=== PATIENT | male | born 1990 | race Asian ===

== ENCOUNTER 2016-02-21 19:10 | Emergency (ER) | payer OTHER ==
[~2016-02-21] VITALS: Ht 177.8 cm; Wt 74.8 kg
[2016-02-21 20:25] LABS: ABSOLUTE BASOPHIL COUNT 0 /CUMM (0.0-0.2); ABSOLUTE EOSINOPHIL COUNT 0.6 /CUMM (0.0-0.7); ABSOLUTE GRANULOCYTE CT 5.1 /CUMM (1.4-6.5); ABSOLUTE LYMPH COUNT 2.9 /CUMM (1.2-3.4); ABSOLUTE MONOCYTE COUNT 0.8 /CUMM (0.10-0.60); BASOPHIL % 0.3 % (0.0-2.0); EOSINOPHIL % 5.9 % (0-5); GRANULOCYTE % 54.4 % (42.2-75.2); HEMATOCRIT 48.5 % (42-52); MEAN CORPUSCULAR HGB CONC 34.6 G/DL (33.0-37.0); MEAN CORPUSCULAR VOLUME 83.9 FL (80.0-94.0); PLATELET COUNT 297 /CUMM (130-400); RBC DISTRIBUTION WIDTH 12.6 % (11.5-14.5); RED BLOOD CELL CT 5.78 /CUMM (4.70-6.10); WHITE BLOOD CELL COUNT 9.4 /CUMM (4.8-10.8)
--- NOTE | 2016-02-21 20:26 | ED CARDIAC/CP/PALPITATIONS ---
History of Present Illness General Chief Complaint: General Adult Stated Complaint: HIGH BP PER PT Source: patient, family, manager of financial Exam Limitations: language barrier Vital Signs & Intake/Output Vital Signs & Intake/Output Vital Signs Date Time Temp Pulse Resp B/P Pulse O2 O2 Flow FiO2 Ox Delivery Rate 02/20 2038 109 18 160/96 02/20 1913 172/98 02/21 1912 98.2 109 18 166/121 98 Room Air Room Air Allergies Coded Allergies: No Known Allergies (02/21/16) Reconcile Medications Metoprolol Succ XL (Toprol XL) 25 MG TAB 1 TAB PO DAILY htn Triage Note: TRIAGE: 26 Y/O MALE PRESENTS W PMHX OF HYPERTENSION - REPORTS HIGH BLOOD PRESSURE AT HOME. 172/98 MANUALLY IN TRIAGE. DENIES PAIUN, DENIES HEADACHE. DENIES TAKING BP MEDS AT HOME. Triage Nurses Notes Reviewed? yes HPI: 26-year-old non-Mexican speaking male, is the manager of financial, here with complaints of hypertension. They were attaining a medical evaluation together when he was noted to have elevated blood pressure and he was advised to come to the ER for reevaluation. He denies any complaints. He feels well, no chest pain, no palpitations, no nausea no vomiting no confusion no headaches no blurred vision no visual changes. No history of hypertension LO he has not seen a doctor in many years. There is a positive family history of his father dying of a heart attack at the age of 25. There is been no treatment thus far no modifying factors Past History Travel History Traveled to [place] past 21 day No Medical History Any Pertinent Medical History? see below for history Cardiovascular: hypertension Surgical History Surgical History: none Psychosocial History What is your primary language Polish Tobacco Use: Never used ETOH Use: occasional use Illicit Drug Use: denies illicit drug use Family History Hx Contributory? No Review of Systems Review of Systems Constitutional: Reports: see HPI. EENTM: Reports: no symptoms. Respiratory: Reports: no symptoms. Cardiovascular: Reports: no symptoms. GI: Reports: no symptoms. Genitourinary: Reports: no symptoms. Musculoskeletal: Reports: no symptoms. Skin: Reports: no symptoms. Neurological/Psychological: Reports: no symptoms. Hematologic/Endocrine: Reports: no symptoms. Immunologic/Allergic: Reports: no symptoms. All Other Systems: Reviewed and Negative Physical Exam Physical Exam General Appearance: well developed/nourished Cardiovascular: regular rate/rhythm Comments: Well-developed well-nourished person in no acute distress HEENT: Normal EENT exam, extraocular motion intact, no nystagmus. Pupils equally round and reactive to light. Nose is atraumatic. External auditory canal and Tympanic membranes clear. Pharynx normal. No swelling or edema. Neck: Supple, no lymphadenopathy, normal range of motion without pain or tenderness Back: Nontender, no CVA tenderness. Full range of motion Cardiovascular: Regular rate and rhythms no murmurs, normal JVP Respiratory: Chest nontender. No respiratory distress. Breath sounds clear to auscultation bilaterally Abdomen: Soft, nontender nondistended, no appreciable organomegaly. Normal bowel sounds. No ascites Extremity: No edema, no calf tenderness to palpation, normal and equal pulses. Neuro: Alert oriented x3, motor sensory normal, cranial nerves II through XII grossly intact. Skin: No appreciable rash on exposed skin, skin is warm and dry. Psych: Mood and affect is normal, memory and judgment is normal. Core Measures ACS in differential dx? Yes Severe Sepsis Present: No Septic Shock Present: No Progress Differential Diagnosis: AMI, aortic dissection, atrial fibrillation, cholecystitis, CHF/pulm edema, costochondritis, hyperkalemia, hypovolemia, hyperthyroid, hyperventilation, intracranial hemorrhage, musculoskeletal pain, myocarditis, pancreatitis, pericarditis, pneumonia, pneumothorax, PSVT, pulmonary embolism, PUD/GERD, PVCs/PACs, respiratory failure, rib fracture, sepsis, unstable angina, V-fib/V-Tach, WPW syndrome Plan of Care: Orders Procedure Date/time Status Telemetry/Director [facility] 02/21 2004 Active URINALYSIS 02/21 2004 Complete COMPREHENSIVE METABOLIC PANEL 02/21 2004 Complete CBC WITHOUT DIFFERENTIAL 02/21 2004 Complete EKG 02/21 2004 Active Laboratory Tests 02/21/16 2027: Urine Color YEL, Urine Clarity CLEAR, Urine pH 7.0, Ur Specific [place] 1.010, Urine Protein NEG, Urine Ketones NEG, Urine Nitrite NEG, Urine Bilirubin NEG, Urine Urobilinogen 0.2, Ur Leukocyte Esterase NEG, Ur Microscopic EXAM NOT REQUIRED, Urine Hemoglobin NEG, Urine Glucose NEG 02/21/16 2016: Anion Gap 13, Estimated GFR > 60, BUN/Creatinine Ratio 15.0, Glucose 110 H, Calcium 10.0, Total Bilirubin 1.4 H, AST 29, ALT 28, Alkaline Phosphatase 82, Total Protein 8.5 H, Albumin 4.9, Globulin 3.6, Albumin/Globulin Ratio 1.4, CBC w Diff NO MAN DIFF REQ, RBC 5.78, MCV 83.9, MCH 29.0, RDW 12.6, MPV 8.0, Gran % 54.4, Lymphocytes % 31.4, Monocytes % 8.0, Eosinophils % 5.9 H, Basophils % 0.3 , Absolute Granulocytes 5.1, Absolute Lymphocytes 2.9, Absolute Monocytes 0.8 H , Absolute Eosinophils 0.6, Absolute Basophils 0, PUBS MCHC 34.6 Initial ED EKG: NSR, rate (95), sinus arrhythmia, LVH, nonspecific ST and T-wave changes Rhythm Strip: normal sinus rhythm Comments: Treated with metoprolol 25 mg by mouth. Will obtain EKG, labs, urinalysis and cardiac monitoring Work up is unremarkable, metoprolol improve his blood pressure 130/80, we'll prescribe medication for this and urged follow-up with primary care doctor as soon as possible next 1-2 weeks. He is asymptomatic on reevaluation. Departure Departure Disposition: HOME OR SELF CARE Condition: Stable Clinical Impression Primary Impression: Hypertensive urgency Referrals: ABAD PEGUERO MD PATIENT HAS NO PRIMARY CARE DR (PCP/Family) Referred to [facility] as new patient Yes Additional Instructions: Please follow up with primary care doctor as outpatient for recheck of your blood pressure. Take metoprolol 25 mg mouth twice daily. Return if you're feeling lightheaded dizzy any chest pain, severe headaches or blurry vision Departure Forms: Customer Survey General Discharge Information Prescriptions: Current Visit Scripts Metoprolol Succ XL (Toprol XL) 1 TAB PO DAILY #30 TAB Critical Care Note Critical Care Note Critical Care Time: non-applicable
[2016-02-21] MEDS ORDERED: TOPROL XL25 M1 PO (20:59)
[2016-02-21 21:06] VITALS: BP 130/82
== END 2016-02-21 21:10 ==
LOC: ERH 19:10
PROVIDERS: Physician Assistant Surgical
DX: I16.0 Hypertensive urgency (principal)
CPT/HCPCS: 81003; 93005; 93010